=== PATIENT | female | born 1995 | race African-American/Black ===

== ENCOUNTER 2024-09-16 05:39 | Emergency (ER) | payer OTHER ==
[~2024-09-16] VITALS: Ht 167.6 cm; Wt 201.8 kg
[2024-09-16] MEDS: ONDANSETRON HCL INJ 2MG/ML 2ML 2 MG/ML VIAL IV STA (07:01)
[2024-09-16] MEDS: SODIUM CHLORIDE 0.9% 1000ML 1,000 ML IV ONE (07:01)
[2024-09-16] MEDS: FAMOTIDINE 20 MG/2 ML VIAL IV STA (07:01)
[2024-09-16] MEDS: DICYCLOMINE HCL 20 MG/2 ML VIAL IM ONE (07:04)
[2024-09-16 08:53] VITALS: PULSE 83; RESP 18; TEMP 98
[2024-09-16] MEDS ORDERED: ONDANSETRON ODT4 MG PO (10:15)
[2024-09-16] MEDS ORDERED: CEFDINIR300 MG PO (10:15)
[2024-09-16] MEDS ORDERED: PANTOPRAZOLE SO40 MG PO (10:16)
[2024-09-16 10:38] VITALS: BP 112/85; PULSE 88; RESP 18; TEMP 98.2; O2SAT 99
== END 2024-09-16 10:33 | disposition home or self-care (01) ==
LOC: FSED 05:56
DX: R11.2 Nausea with vomiting, unspecified (principal); R19.7 Diarrhea, unspecified; R10.10 Upper abdominal pain, unspecified; E66.01 Morbid (severe) obesity due to excess calories
CPT/HCPCS: 74176; 80053; 80307; 81003; 81025; 85025; 99284; J0500; J0696; J2405; J7030

== ENCOUNTER 2024-10-12 02:10 | Emergency (ER) | payer OTHER ==
[~2024-10-12] VITALS: Ht 167.6 cm; Wt 201.8 kg
[~2024-10-12 02:10] MED LIST: CEFDINIR300 MG PO; ONDANSETRON ODT4 MG PO; PANTOPRAZOLE SO40 MG PO
[2024-10-12 02:12] VITALS: PULSE 95; RESP 18; TEMP 98.6; O2SAT 97
[2024-10-12] MEDS ORDERED: AMOXICILLIN500 MG PO (02:47)
== END 2024-10-12 02:52 | disposition home or self-care (01) ==
LOC: FSED 02:23
DX: H92.03 Otalgia, bilateral (principal); J02.0 Streptococcal pharyngitis; Z11.52 Encounter for screening for COVID-19
CPT/HCPCS: 0223U; 83518; 87400; 99282